=== PATIENT | female | born 1970 | race Caucasian/White ===

== ENCOUNTER 2016-07-21 20:04 | Emergency (ER) | payer OTHER ==
[~2016-07-21 20:04] MED LIST: COLACE 100MG C100 MG PO; HYDROCHLOROTH12.5 M1 PO; HYDROXYZINE HCL25 MG PO; IBUPROFEN600 MG PO; NEURONTIN 300300 MG PO; NORCO 5-325 TA1 EACH PO; NORVASC 5 MG TAB5 MG PO
== END 2016-07-21 21:20 | disposition home or self-care (01) ==
LOC: ER1 20:04
DX: S93.621A Sprain of tarsometatarsal ligament of right foot, initial encounter (principal); I10 Essential (primary) hypertension; Z88.0 Allergy status to penicillin; Z88.2 Allergy status to sulfonamides; X58.XXXA Exposure to other specified factors, initial encounter; Z79.899 Other long term (current) drug therapy
CPT/HCPCS: 73630; 99283

== ENCOUNTER → 2016-07-26 | Outpatient (CLI) | payer OTHER ==
[2016-07-26 09:38] LABS: HEMOGLOBIN 13.4 gm/dl (12.3-15.3); RED BLOOD COUNT 4.46 M/UL (4.00-5.10); WHITE BLOOD COUNT 7.4 K/UL (4.5-11.0)
[2016-07-26 10:36] LABS: BUN/CREATININE RATIO 22 (0-10)
== END ==
LOC: LAB 08:35
PROVIDERS: Nurse Practitioner Family
DX: E78.5 Hyperlipidemia, unspecified (principal)
CPT/HCPCS: 36415; 80053; 80061; 82607; 85025

== ENCOUNTER → 2016-07-29 | Outpatient (CLI) | payer OTHER | LOC: LAB 09:03 | DX: E87.6 Hypokalemia (principal) | CPT/HCPCS: 36415; 84132 ==